=== PATIENT | female | born 1960 | race Caucasian/White ===

== ENCOUNTER 2023-12-30 21:24 | Emergency (ER) | payer MEDICAID, MEDICARE, OTHER ==
[2023-12-30] MEDS: Ketorolac 30 MG/ML SDV IM ONE (22:33)
== END 2023-12-30 23:59 | disposition home or self-care (01) ==
LOC: JP.ED 21:24
DX: C22.9 Malignant neoplasm of liver, not specified as primary or secondary (principal); I10 Essential (primary) hypertension; E03.9 Hypothyroidism, unspecified; Z79.890 Hormone replacement therapy; Z79.899 Other long term (current) drug therapy; Z87.891 Personal history of nicotine dependence
CPT/HCPCS: 96372; 99284; J1885